=== PATIENT | male | born 2000 | race Caucasian/White ===

== ENCOUNTER 2025-02-18 19:12 | Emergency (ER) | payer MEDICAID ==
[~2025-02-18] VITALS: Ht 177.8 cm; Wt 68.0 kg
[~2025-02-18 19:12] MED LIST: ESCI10TA PO; HYDR-501 PO
[2025-02-18 21:35] VITALS: BP 130/78
[2025-02-19 00:45] LABS: PLATELET COUNT (AUTO) 208 K/uL (152-348); RED BLOOD CELL COUNT(AUTO) 5.41 MIL/uL (4.06-5.63); RED CELL DISTRIBUTION WIDTH 12.6 % (12.1-16.2); WHITE BLOOD COUNT (AUTO) 9.1 K/uL (3.6-10.2)
[2025-02-19 00:51] LABS: CREATININE 0.9 mg/dL (0.6-1.3); SODIUM SERUM 143.0 mmol/L (136-145); UREA NITROGEN, BLOOD 13.0 mg/dL (7-18)
[2025-02-19 00:56] LABS: ETHANOL < 3 MG/DL (0-10)
[2025-02-19 00:57] LABS: ASPARTATE AMINOTRANSFERASE 14.0 U/L (15-37); TOTAL PROTEIN, SERUM 8.1 g/dL (6.4-8.2)
[2025-02-19 01:03] LABS: NT-PRO BNP 18 pg/mL (0-125)
[2025-02-19 01:29] LABS: *BILIRUBIN,URIN NEGATIVE (NEGATIVE); *BLOOD, URINE NEGATIVE (NEGATIVE); *COLOR,URINE YELLOW (YELLOW); *KETONES,URINE NEGATIVE (NEGATIVE); *PROTEIN,URINE NEGATIVE (NEGATIVE); *UROBILINOGEN,URINE 0.2 E.U./dl (NORMAL); LEUKOCYTE ESTERASE ,URINE NEGATIVE (NEGATIVE); NITRITE, URINE NEGATIVE (NEGATIVE); UGLUCOSE NEGATIVE (NEGATIVE)
[2025-02-19 01:33] LABS: *CLARITY,URINE CLEAR (CLEAR)
[2025-02-19 01:43] LABS: *AMPHETAMINE, URINE NEGATIVE (NEGATIVE); *BARBITURATE, URINE NEGATIVE (NEGATIVE); *BENZODIAZEPINE, URINE NEGATIVE (NEGATIVE); *CANNABINOID, URINE POSITIVE (NEGATIVE); *COCCAINE, URINE NEGATIVE (NEGATIVE); *OPIATE, URINE NEGATIVE (NEGATIVE); *PHENCYCLIDINE SCREEN,URINE NEGATIVE (NEGATIVE); FENTANYL, URINE NEGATIVE (NEGATIVE)
[2025-02-19 01:56] VITALS: BP 128/66; TEMP 98; O2SAT 98
== END 2025-02-19 01:57 | disposition home or self-care (01) ==
LOC: ER 19:12
DX: F41.0 Panic disorder [episodic paroxysmal anxiety] (principal); R06.02 Shortness of breath; I49.1 Atrial premature depolarization; Z79.899 Other long term (current) drug therapy
CPT/HCPCS: 36415; 71045; 84484; 85025; A4606; A4663; G0480

== ENCOUNTER 2025-03-30 22:07 | Emergency (ER) | payer MEDICAID ==
[~2025-03-30] VITALS: Ht 177.8 cm; Wt 68.0 kg
[2025-03-30 22:09] VITALS: BP 141/70
[2025-03-30] MEDS ORDERED: ASPIRIN 81 MG TAB.CHEW ONE (22:25)
[2025-03-30] MEDS ORDERED: LORAZEPAM 2 MG/1 ML VIAL ONE (22:25)
[2025-03-30 22:31] LABS: PLATELET COUNT (AUTO) 152 K/uL (152-348); RED BLOOD CELL COUNT(AUTO) 4.92 MIL/uL (4.06-5.63); RED CELL DISTRIBUTION WIDTH 12.8 % (12.1-16.2); WHITE BLOOD COUNT (AUTO) 6.8 K/uL (3.6-10.2)
[2025-03-30] MEDS: LORAZEPAM 2 MG/1 ML VIAL IV ONE (22:31)
[2025-03-30] MEDS: ASPIRIN 81 MG TAB.CHEW PO ONE (22:31)
[2025-03-30 22:42] LABS: ASPARTATE AMINOTRANSFERASE 23 U/L (15-37); CREATININE 0.8 mg/dL (0.6-1.3); SODIUM SERUM 140 mmol/L (136-145); TOTAL PROTEIN, SERUM 7.9 g/dL (6.4-8.2); UREA NITROGEN, BLOOD 14 mg/dL (7-18)
[2025-03-30] MEDS ORDERED: LORA-259 PO (23:50)
[2025-03-31 00:05] VITALS: BP 130/70; O2SAT 100
== END 2025-03-31 00:06 | disposition home or self-care (01) ==
LOC: ER 22:11
DX: R07.9 Chest pain, unspecified (principal); F41.0 Panic disorder [episodic paroxysmal anxiety]; R06.00 Dyspnea, unspecified; R00.2 Palpitations; R00.1 Bradycardia, unspecified; F12.90 Cannabis use, unspecified, uncomplicated; F17.200 Nicotine dependence, unspecified, uncomplicated; Z79.899 Other long term (current) drug therapy
CPT/HCPCS: 99285; 96374; 71045; 80076; 80048; 83880; 85025; 85379; 84484; 36415; 93005; J2060; A4606; A4663